=== PATIENT | female | born 1990 | race Caucasian/White ===

== ENCOUNTER 2019-03-18 12:33 | Emergency (ER) | payer BC ==
[~2019-03-18] VITALS: Ht 157.5 cm; Wt 71.7 kg
[2019-03-18 12:35] VITALS: BP 128/89
== END 2019-03-18 13:44 | disposition home or self-care (01) ==
LOC: ED 13:20
DX: B00.1 Herpesviral vesicular dermatitis (principal); K13.0 Diseases of lips
CPT/HCPCS: 99283